=== PATIENT | male | born 1955 | race Caucasian/White ===

== ENCOUNTER 2022-06-25 16:59 | Inpatient (IN) | payer BC, OTHER ==
[2022-06-25 19:04] LABS: BASO % 1.3 % (0-2.0); EOS % 4.4 % (0-4.5); HEMATOCRIT 26.4 % (35.4-49); HEMOGLOBIN 7.7 GM/dL (11.7-16.9); LYMPH % 21.8 % (8-40); MCHC 29.3 g/dl (32.0-35.9); MEAN CELL VOLUME 61.9 fl (80-96); MEAN PLT VOLUME 8.7 fl (7.5-11.1); MONO % 5.9 % (3.8-10.2); NEUT % 66.6 % (42.8-82.8); PLATELET COUNT 327 10^3/uL (134-434); RBC 4.27 M/mm3 (4.00-5.60); RDW 20.5 % (11.9-15.9); WHITE BLOOD COUNT 7.3 K/mm3 (4.0-10.0)
[2022-06-25 19:10] LABS: MCH 18.1 pg (25.7-33.7)
[2022-06-25 19:11] LABS: INR 1.19 (0.83-1.09); PROTHROMBIN TIME (PATIENT) 13.7 SEC (9.7-13.0)
[2022-06-25 19:23] LABS: BLOOD UREA NITROGEN 22.3 mg/dL (7-18); CALCIUM 9.4 mg/dL (8.5-10.1)
[2022-06-25 19:24] LABS: MAGNESIUM 2.1 mg/dL (1.8-2.4)
[2022-06-25 19:28] LABS: CREATININE 1.4 mg/dL (0.55-1.3); PHOSPHOROUS 3.7 mg/dL (2.5-4.9)
[2022-06-25 19:30] LABS: BILIRUBIN,TOTAL 0.6 mg/dL (0.2-1); TOT PROT 7.5 g/dl (6.4-8.2)
[2022-06-25 19:50] LABS: ANISOCYTOSIS 2+; MACROCYTOSIS 0
[2022-06-25] MEDS ORDERED: ASPIRIN 81 MG CHEWABLE TABLETS PO ONE (22:38)
[2022-06-25] MEDS ORDERED: ASPIRIN 325 MG TABLET ONE (22:52)
[2022-06-25] MEDS: SODIUM CHLORIDE 1,000 ML IV SCH (22:57)
[2022-06-26 06:32] LABS: ALBUMIN 3.7 g/dl (3.4-5.0); BLOOD UREA NITROGEN 19.4 mg/dL (7-18); CALCIUM 9.1 mg/dL (8.5-10.1)
[2022-06-26 06:34] LABS: CHOLESTEROL 164 mg/dL (50-200); TRIGLYCERIDES 153 mg/dL (0-150)
[2022-06-26 06:35] LABS: CREATININE 1.2 mg/dL (0.55-1.3); LDL CHOLESTEROL (ONLY SJRH) 98 mg/dL (5-100); PHOSPHOROUS 3.2 mg/dL (2.5-4.9)
[2022-06-26 06:38] LABS: BILIRUBIN,TOTAL 0.9 mg/dL (0.2-1); HDL CHOLESTEROL 41 mg/dL (40-60); TOT PROT 6.8 g/dl (6.4-8.2)
[2022-06-26 06:49] LABS: BASO % 1.5 % (0-2.0); EOS % 5.6 % (0-4.5); HEMATOCRIT 26.8 % (35.4-49); HEMOGLOBIN 8.1 GM/dL (11.7-16.9); LYMPH % 16.9 % (8-40); MCHC 30.2 g/dl (32.0-35.9); MEAN CELL VOLUME 64.3 fl (80-96); MEAN PLT VOLUME 8.3 fl (7.5-11.1); MONO % 7.8 % (3.8-10.2); NEUT % 68.2 % (42.8-82.8); PLATELET COUNT 262 10^3/uL (134-434); RBC 4.16 M/mm3 (4.00-5.60); RDW 22.5 % (11.9-15.9); WHITE BLOOD COUNT 5.6 K/mm3 (4.0-10.0)
[2022-06-26 06:56] LABS: MCH 19.4 pg (25.7-33.7)
[2022-06-26] MEDS ORDERED: HEPARIN NA (PORCINE) 5,000 UNITS/ML 1ML VIAL ONE ×3 (09:39→22:44)
[2022-06-26] MEDS ORDERED: ASPIRIN 81 MG CHEWABLE TABLETS ONE (09:41)
[2022-06-26] MEDS: HEPARIN NA (PORCINE) 5,000 UNITS/ML 1ML VIAL SQ SCH ×3 (09:54→22:50)
[2022-06-26] MEDS ORDERED: ASPIRIN 81 MG CHEWABLE TABLETS PO SCH (10:00)
[2022-06-26] MEDS: amLODIPine BESYLATE 10 MG TABLET (FP) PO SCH (12:56)
[2022-06-26] MEDS ORDERED: IRON SUCROSE INJECTION 200 MG in SODIUM CHLORIDE 90 ML IVPB ONE (13:00)
[2022-06-26 20:35] LABS: URINE APPEARANCE CLEAR; URINE BILIRUBIN NEGATIVE (NEGATIVE); URINE COLOR YELLOW; URINE GLUCOSE (UA) NEGATIVE (NEGATIVE)
[2022-06-26 20:36] LABS: PH,URINE 6.5 (5.0-8.0); URINE BACTERIA 3.8 /uL (0-1359); URINE KETONE TRACE (NEGATIVE); URINE LEUK ESTERASE NEGATIVE (NEGATIVE); URINE NITRITE NEGATIVE (NEGATIVE); URINE PROTEIN NEGATIVE (NEGATIVE); URINE RBC 4.8 /uL (0-23.9); URINE WBC 2.1 /uL (0-25.8)
[2022-06-26] MEDS ORDERED: ATORVASTATIN CA 40 MG TABLET (FP) PO SCH (22:00)
[2022-06-26] MEDS ORDERED: ATORVASTATIN CA 40 MG TABLET (FP) ONE (22:43)
[2022-06-27 02:00] VITALS: BMI 29.7
[2022-06-27] MEDS: SODIUM CHLORIDE 1,000 ML IV SCH (02:35)
[2022-06-27] MEDS: HEPARIN NA (PORCINE) 5,000 UNITS/ML 1ML VIAL SQ SCH ×3 (06:02→21:27)
[2022-06-27] MEDS: amLODIPine BESYLATE 10 MG TABLET (FP) PO SCH (09:51)
[2022-06-27] MEDS ORDERED: ASPIRIN COATED 81 MG TABLET.EC PO SCH (10:00)
[2022-06-27] MEDS ORDERED: FLU VACC QS2022-23(6MOS UP)/PF 60 MCG/0.5 ML SYRINGE IM ONE (14:00)
[2022-06-27] MEDS ORDERED: ATORVASTATIN CA 80 MG TABLET (FP) PO SCH (22:00)
[2022-06-28] MEDS: HEPARIN NA (PORCINE) 5,000 UNITS/ML 1ML VIAL SQ SCH ×2 (05:13→15:18)
[2022-06-28] MEDS: SODIUM CHLORIDE 1,000 ML IV SCH (05:13)
[2022-06-28 09:16] LABS: ALBUMIN 3.5 g/dl (3.4-5.0); BLOOD UREA NITROGEN 18.4 mg/dL (7-18); CALCIUM 8.6 mg/dL (8.5-10.1); MAGNESIUM 2.3 mg/dL (1.8-2.4)
[2022-06-28 09:20] LABS: BILIRUBIN,TOTAL 0.5 mg/dL (0.2-1); CREATININE 1.2 mg/dL (0.55-1.3); PHOSPHOROUS 3.1 mg/dL (2.5-4.9); TOT PROT 6.3 g/dl (6.4-8.2)
[2022-06-28] MEDS: amLODIPine BESYLATE 10 MG TABLET (FP) PO SCH (09:27)
[2022-06-28] MEDS ORDERED: IRON SUCROSE INJECTION 200 MG in SODIUM CHLORIDE 90 ML IVPB ONE (09:30)
[2022-06-28 10:01] LABS: HEMATOCRIT 26.7 % (35.4-49); MEAN CELL VOLUME 65.8 fl (80-96); MEAN PLT VOLUME 8.6 fl (7.5-11.1); PLATELET COUNT 244 10^3/uL (134-434); RBC 4.06 M/mm3 (4.00-5.60); RDW 22.8 % (11.9-15.9); WHITE BLOOD COUNT 5.4 K/mm3 (4.0-10.0)
[2022-06-28 10:02] LABS: MCH 19.7 pg (25.7-33.7)
[2022-06-28 13:46] VITALS: RESP 19
[2022-06-28 14:04] VITALS: BP 136/73; PULSE 67; TEMP 98.8
== END 2022-06-28 16:19 | disposition home or self-care (01) | DRG 69 ==
LOC: JER 16:59 → JERBED 21:12 → INTOOBSV 21:13 → OBSVTOIN 21:13 → J4S 06-27 00:42 → OBSVTOIN 06-27 15:03
PROVIDERS: ADMIT Internal Medicine; ATTEND Internal Medicine
DX: G45.9 Transient cerebral ischemic attack, unspecified (principal); N17.9 Acute kidney failure, unspecified; I10 Essential (primary) hypertension; D64.9 Anemia, unspecified; N40.0 Benign prostatic hyperplasia without lower urinary tract symptoms; Z86.16 Personal history of COVID-19; D50.9 Iron deficiency anemia, unspecified; E66.9 Obesity, unspecified; Z68.29 Body mass index [BMI] 29.0-29.9, adult; M54.12 Radiculopathy, cervical region
CPT/HCPCS: 0241U-QW; 36415; 36430; 70450-TC; 70498-TC; 70551-TC; 71046-TC-FY; 72141-TC; 76775-TC; 80053; 80061; 81003; 82272; 82550; 82728; 83540; 83550; 83735; 84100; 84132; 84443; 84484; 85025; 85027; 85045; 85610; 86850; 86900; 86901; 86922; 93005; 93010; 93880-TC; 99285-25; G0008; G0378; J1644; J1756; P9058; Q2036; Q9967